=== PATIENT | male | born 1950 | race Caucasian/White ===

== ENCOUNTER 2018-01-31 07:48 | Day surgery (SDC) | payer BC ==
[~2018-01-31] VITALS: Ht 185.4 cm; Wt 101.7 kg
[~2018-01-31 07:48] MED LIST: AMLO10; Advil200 M1; Aspir 8181 MG; IRBE150 PO
== END 2018-01-31 09:55 | disposition home or self-care (01) ==
LOC: ORSCSDS 07:48
PROVIDERS: Internal Medicine Gastroenterology
PROC: 0DBM8ZX Excision of Descending Colon, Via Natural or Artificial Opening Endoscopic, Diagnostic (ICD-10-PCS; principal; 2018-01-31 09:00)
PROC: 0DBK8ZX Excision of Ascending Colon, Via Natural or Artificial Opening Endoscopic, Diagnostic (ICD-10-PCS; principal; 2018-01-31 09:00)
DX: Z12.11 Encounter for screening for malignant neoplasm of colon (principal); D12.2 Benign neoplasm of ascending colon; D12.4 Benign neoplasm of descending colon; Z86.010 Personal history of colon polyps; Z80.0 Family history of malignant neoplasm of digestive organs; K57.30 Diverticulosis of large intestine without perforation or abscess without bleeding; E66.9 Obesity, unspecified; Z68.31 Body mass index [BMI] 31.0-31.9, adult; Z79.82 Long term (current) use of aspirin; Z79.899 Other long term (current) drug therapy
CPT/HCPCS: 88305; J0330; J1980; J2405

== ENCOUNTER 2023-02-01 10:06 | Day surgery (SDC) | payer OTHER ==
[~2023-02-01] VITALS: Ht 182.9 cm; Wt 99.2 kg
[2023-02-01] MEDS ORDERED: HYDCHL25 (10:33)
== END 2023-02-01 12:33 | disposition home or self-care (01) ==
LOC: ORSCSDS 10:06
PROVIDERS: Internal Medicine Gastroenterology
PROC: 0DBL8ZX Excision of Transverse Colon, Via Natural or Artificial Opening Endoscopic, Diagnostic (ICD-10-PCS; principal; 2023-02-01 11:45)
PROC: 0DBM8ZX Excision of Descending Colon, Via Natural or Artificial Opening Endoscopic, Diagnostic (ICD-10-PCS; principal; 2023-02-01 11:45)
DX: Z12.11 Encounter for screening for malignant neoplasm of colon (principal); Z86.010 Personal history of colon polyps; Z80.0 Family history of malignant neoplasm of digestive organs; D12.4 Benign neoplasm of descending colon; D12.3 Benign neoplasm of transverse colon; K57.30 Diverticulosis of large intestine without perforation or abscess without bleeding; I10 Essential (primary) hypertension; Z79.899 Other long term (current) drug therapy
CPT/HCPCS: 88305; J2704; J7120